=== PATIENT | male | born 1950 | race Caucasian/White ===

== ENCOUNTER 2021-09-26 00:35 | Day surgery (SDCO) | payer OTHER ==
[~2021-09-26] VITALS: Ht 172.7 cm; Wt 78.2 kg
[2021-09-26 00:54] LABS: BASOPHIL 0.7 % (0-2); EOSINOPHIL 1.7 % (0-7); HCT 43.8 % (42.0-52.0); HGB 14.3 g/dl (13.2-18.0); LYMPHOCYTE 34.7 % (15-48); MCH 28.1 pg (25.0-31.0); MCHC 32.6 g/dL (32.0-36.0); MCV 86.2 fL (78.0-100.0); MONOCYTE 9.9 % (0-12); MPV 11.1 fL (6.0-9.5); NEUTROPHIL 52.7 % (41-80); NRBC 0; PLT 262 K/uL (150-400); RBC 5.08 M/uL (4.70-6.00); RDW 13.6 % (11.5-14.0); WBC 7.1 K/uL (4.0-10.5)
[2021-09-26 01:21] LABS: MAGNESIUM 1.9 mg/dL (1.8-2.4); PHOSPHORUS 3.3 mg/dL (2.6-4.7)
[2021-09-26 01:23] LABS: BILIRUBIN - TOTAL 0.4 mg/dL (0.2-1.0); BUN/CREAT RATIO (CALC) 18.5 RATIO; CREATININE 1.08 mg/dL (0.67-1.17); GLOBULIN (CALCULATION) 3.9 g/dL; POTASSIUM 3.6 mmol/L (3.5-5.1); TOTAL PROTEIN 7.9 g/dL (6.4-8.2)
[2021-09-26 02:55] LABS: BILIRUBIN NEGATIVE (NEGATIVE); BLOOD NEGATIVE Ery/uL (NEGATIVE); CLARITY CLEAR (CLEAR); COLOR YELLOW (YELLOW); GLUCOSE (U) NORMAL (NORMAL); LEUKOCYTES NEGATIVE Leu/uL (NEGATIVE); NITRITE NEGATIVE (NEGATIVE); PROTEIN NEGATIVE (NEGATIVE); UROBILINOGEN 0.2 mg/dL (0.2-1.0)
[2021-09-26] MEDS ORDERED: AMLODIPINE BESYL5 MG PO (04:31)
[2021-09-26] MEDS ORDERED: LANTUS SOL100 UNIT/1 SC (04:31)
[2021-09-26] MEDS ORDERED: OMEPRAZOLE 20MG20 MG PO (04:32)
[2021-09-26] MEDS ORDERED: CLOPIDOGREL75 MG PO (04:32)
[2021-09-26] MEDS ORDERED: SERTRALINE HCL25 MG PO (04:32)
[2021-09-26] MEDS ORDERED: METFORMIN HCL500 M1 PO (04:33)
[2021-09-26] MEDS ORDERED: RAMIPRIL10 MG PO (04:33)
[2021-09-26] MEDS ORDERED: EZETIMIBE10 MG PO (04:34)
[2021-09-26] MEDS ORDERED: ATORVASTATIN CA80 MG PO (04:34)
[2021-09-26] MEDS ORDERED: FENOFIBRATE145 MG PO (04:34)
[2021-09-27 06:02] LABS: EOSINOPHIL 1.6 % (0-7); HCT 38.9 % (42.0-52.0); HGB 12.8 g/dl (13.2-18.0); LYMPHOCYTE 41.6 % (15-48); MCH 28.1 pg (25.0-31.0); MCHC 32.9 g/dL (32.0-36.0); MCV 85.5 fL (78.0-100.0); MONOCYTE 10.5 % (0-12); MPV 11.4 fL (6.0-9.5); NEUTROPHIL 45.1 % (41-80); NRBC 0; PLT 204 K/uL (150-400); RBC 4.55 M/uL (4.70-6.00); RDW 13.4 % (11.5-14.0); WBC 5.1 K/uL (4.0-10.5)
[2021-09-27 06:23] LABS: ALBUMIN 3.3 g/dL (3.4-5.0); BILIRUBIN - TOTAL 0.4 mg/dL (0.2-1.0); BUN/CREAT RATIO (CALC) 14.7 RATIO; CREATININE 1.09 mg/dL (0.67-1.17); GLOBULIN (CALCULATION) 3.4 g/dL; PHOSPHORUS 3.7 mg/dL (2.6-4.7); POTASSIUM 3.6 mmol/L (3.5-5.1); TOTAL PROTEIN 6.7 g/dL (6.4-8.2)
--- NOTE | 2021-09-27 13:44 | NUR ---
09/27/21 Mr. Ambrosio was on August 12. He is living with his grandson, Zander Ambrosio ([phone]). Mr. Ambrosio has a rw and wc. However, he was independent with mobility prior to illness. Mr. Ambrosio and his grandson are interested in SNF placement prior to returning to his grandson's home. Referrals have been to: [facility], [facility], [facility], and [facility] per patient / family choice.
--- NOTE | 2021-09-28 12:13 | NUR ---
09/28/21 [facility] has received insurance authorization for admission today. His grandson, Zander Ambrosio, , has agreed to transport. A request was made for the H&P and DS to be signed. - Report was given to MS HAI Michelle, and Dr. Mackey. - Note: The grandson reports patient to have had the Tj & Tj vaccination in June.
[2021-09-28] MEDS ORDERED: ASPIRIN EC81 MG PO (13:25)
[2021-09-28] MEDS ORDERED: TAMSULOSIN HCL0.4 MG PO (13:25)
== END 2021-09-28 18:56 ==
LOC: FER 00:35 → FMS 03:09
PROVIDERS: Emergency Medicine; Family Medicine; ADMIT Internal Medicine
DX: I16.0 Hypertensive urgency (principal); I10 Essential (primary) hypertension; R53.1 Weakness; I69.351 Hemiplegia and hemiparesis following cerebral infarction affecting right dominant side; E11.40 Type 2 diabetes mellitus with diabetic neuropathy, unspecified; I25.10 Atherosclerotic heart disease of native coronary artery without angina pectoris; E78.5 Hyperlipidemia, unspecified; S51.012A Laceration without foreign body of left elbow, initial encounter; S80.212A Abrasion, left knee, initial encounter; R39.198 Other difficulties with micturition; Z66 Do not resuscitate; Z87.891 Personal history of nicotine dependence; Z79.02 Long term (current) use of antithrombotics/antiplatelets; Z79.4 Long term (current) use of insulin; Z79.84 Long term (current) use of oral hypoglycemic drugs; Z79.899 Other long term (current) drug therapy; Z95.1 Presence of aortocoronary bypass graft; Z95.5 Presence of coronary angioplasty implant and graft; Z20.822 Contact with and (suspected) exposure to COVID-19; W19.XXXA Unspecified fall, initial encounter
CPT/HCPCS: 36415; 70450; 70551; 71045; 80053; 81003; 82962; 83036; 83735; 84100; 84443; 84484; 85025; 93005; 97110; 97163; 97166; 97530-GP; 97535; G0378; J1650; J1815; J7030; U0002

== ENCOUNTER 2021-10-13 13:48 | Day surgery (SDCO) | payer OTHER ==
[~2021-10-13] VITALS: Ht 170.2 cm; Wt 77.3 kg
[~2021-10-13 13:48] MED LIST: AMLODIPINE BESYL5 MG PO; ASPIRIN EC81 MG PO; ATORVASTATIN CA80 MG PO; CLOPIDOGREL75 MG PO; EZETIMIBE10 MG PO; FENOFIBRATE145 MG PO; LANTUS SOL100 UNIT/1 SC; METFORMIN HCL500 M1 PO; OMEPRAZOLE 20MG20 MG PO; RAMIPRIL10 MG PO; SERTRALINE HCL25 MG PO; TAMSULOSIN HCL0.4 MG PO
[2021-10-13 14:45] LABS: BASOPHIL 0.3 % (0-2); EOSINOPHIL 0.1 % (0-7); HCT 42.6 % (42.0-52.0); HGB 13.6 g/dl (13.2-18.0); MCH 27.9 pg (25.0-31.0); MCHC 31.9 g/dL (32.0-36.0); MCV 87.5 fL (78.0-100.0); MONOCYTE 7.6 % (0-12); MPV 11.2 fL (6.0-9.5); NEUTROPHIL 74.1 % (41-80); NRBC 0; PLT 280 K/uL (150-400); RBC 4.87 M/uL (4.70-6.00); RDW 13.2 % (11.5-14.0)
[2021-10-13 15:05] LABS: PROTHROMBIN TIME 12.6 SECONDS (11.8-13.4); PTT 27.3 SECONDS (24.4-34.7)
[2021-10-13 15:14] LABS: ALBUMIN 3.7 g/dL (3.4-5.0); BILIRUBIN - TOTAL 0.3 mg/dL (0.2-1.0); BUN/CREAT RATIO (CALC) 18.9 RATIO; CREATININE 0.9 mg/dL (0.67-1.17); GLOBULIN (CALCULATION) 3.7 g/dL; POTASSIUM 3.9 mmol/L (3.5-5.1); TOTAL PROTEIN 7.4 g/dL (6.4-8.2)
[2021-10-13 15:24] LABS: CKMB 0.7 ng/mL (0.0-3.6)
[2021-10-13 21:08] LABS: CORONAVIRUS 2019 SARS-COV-2 NEGATIVE (NEGATIVE); INFLUENZA A NAA NEGATIVE (NEGATIVE)
[2021-10-14] MEDS ORDERED: ESOMEPRAZOLE MA40 MG PO (02:22)
[2021-10-14 06:31] LABS: BASOPHIL 0.6 % (0-2); EOSINOPHIL 1.6 % (0-7); HCT 38.9 % (42.0-52.0); HGB 12.4 g/dl (13.2-18.0); LYMPHOCYTE 23.2 % (15-48); MCH 28.3 pg (25.0-31.0); MCHC 31.9 g/dL (32.0-36.0); MCV 88.8 fL (78.0-100.0); MONOCYTE 8.2 % (0-12); MPV 11.4 fL (6.0-9.5); NEUTROPHIL 66.1 % (41-80); NRBC 0; PLT 263 K/uL (150-400); RBC 4.38 M/uL (4.70-6.00); RDW 13.4 % (11.5-14.0); WBC 6.7 K/uL (4.0-10.5)
[2021-10-14 06:48] LABS: BUN/CREAT RATIO (CALC) 19.4 RATIO; CREATININE 1.03 mg/dL (0.67-1.17); POTASSIUM 4.1 mmol/L (3.5-5.1)
[2021-10-14 18:49] LABS: BILIRUBIN NEGATIVE (NEGATIVE); BLOOD NEGATIVE Ery/uL (NEGATIVE); CLARITY CLEAR (CLEAR); COLOR YELLOW (YELLOW); GLUCOSE (U) NORMAL (NORMAL); LEUKOCYTES NEGATIVE Leu/uL (NEGATIVE); NITRITE NEGATIVE (NEGATIVE); PROTEIN NEGATIVE (NEGATIVE); SPECIFIC GRAVITY 1.015 (1.001-1.030); pH 7.5 (5.0-9.0)
[2021-10-14 18:54] LABS: AMPHETAMINES NEGATIVE (NEGATIVE); BARBITURATES NEGATIVE (NEGATIVE); ECSTASY (MDMA) NEGATIVE (NEGATIVE); MARIJUANA (THC) NEGATIVE (NEGATIVE); METHADONE NEGATIVE (NEGATIVE); OPIATES NEGATIVE (NEGATIVE); OXYCODONE NEGATIVE (NEGATIVE)
[2021-10-14 19:06] LABS: CALCIUM OXALATE CRYSTALS TRACE
[2021-10-15 06:06] LABS: EOSINOPHIL 2.4 % (0-7); HCT 41.5 % (42.0-52.0); HGB 13.3 g/dl (13.2-18.0); LYMPHOCYTE 33.3 % (15-48); MCH 27.8 pg (25.0-31.0); MCV 86.6 fL (78.0-100.0); MONOCYTE 8.7 % (0-12); MPV 11.1 fL (6.0-9.5); NEUTROPHIL 54.4 % (41-80); NRBC 0; PLT 234 K/uL (150-400); RBC 4.79 M/uL (4.70-6.00); RDW 13.3 % (11.5-14.0); WBC 6.2 K/uL (4.0-10.5)
[2021-10-15 06:31] LABS: BUN/CREAT RATIO (CALC) 18.4 RATIO; CREATININE 0.98 mg/dL (0.67-1.17); POTASSIUM 3.9 mmol/L (3.5-5.1)
--- NOTE | 2021-10-15 12:15 | NUR ---
10/15/21 Mr. Ambrosio lives with his daughter, Tracee Powers, . He has a cane, rw, 3in1, s. chair, wc and ramp. A referral was made to [facility] per family choice. There was concerns re: insulin being given correctly. Dr. Maldonado will dc the insulin and control BS with medications and diet. The HHR included nursing for diabetic teaching, OT/PT and social work. - Please notify [facility] at [phone] if patient discharges over the weekend.
--- NOTE | 2021-10-15 12:37 | NUR ---
10/15/21 A was notified of discharge. Report given to IVANIA Sanchez RN.
== END 2021-10-15 17:37 | disposition home or self-care (01) ==
LOC: FER 13:48 → FTCU 19:46
PROVIDERS: Emergency Medicine; Internal Medicine; Nurse Practitioner; Nurse Practitioner Family; ADMIT Internal Medicine
DX: E11.649 Type 2 diabetes mellitus with hypoglycemia without coma (principal); I10 Essential (primary) hypertension; I25.10 Atherosclerotic heart disease of native coronary artery without angina pectoris; E78.5 Hyperlipidemia, unspecified; E11.40 Type 2 diabetes mellitus with diabetic neuropathy, unspecified; F17.210 Nicotine dependence, cigarettes, uncomplicated; Z86.73 Personal history of transient ischemic attack (TIA), and cerebral infarction without residual deficits; Z95.5 Presence of coronary angioplasty implant and graft; Z95.1 Presence of aortocoronary bypass graft; Z79.4 Long term (current) use of insulin; Z79.84 Long term (current) use of oral hypoglycemic drugs; Z79.82 Long term (current) use of aspirin; Z20.822 Contact with and (suspected) exposure to COVID-19; G31.9 Degenerative disease of nervous system, unspecified; F02.80 Dementia in other diseases classified elsewhere, unspecified severity, without behavioral disturbance, psychotic disturbance, mood disturbance, and anxiety
CPT/HCPCS: 36415; 70450; 70551; 71045; 80048; 80053; 80305; 81001; 82553; 82962; 83036; 84484; 85025; 85610; 85730; 93005; 97162; 97166; 97530-GP; 97535; G0378; J1650; U0002

== ENCOUNTER 2022-01-08 09:27 | Emergency (ER) | payer OTHER ==
[~2022-01-08 09:27] MED LIST changes: +ESOMEPRAZOLE MA40 MG PO
== END 2022-01-08 11:54 | disposition home or self-care (01) ==
LOC: FER 09:27
DX: S00.03XA Contusion of scalp, initial encounter (principal); I10 Essential (primary) hypertension; E11.9 Type 2 diabetes mellitus without complications; Z86.73 Personal history of transient ischemic attack (TIA), and cerebral infarction without residual deficits; W19.XXXA Unspecified fall, initial encounter; Y92.129 Unspecified place in nursing home as the place of occurrence of the external cause
CPT/HCPCS: 70450; 72125

== ENCOUNTER 2022-04-08 15:52 | Emergency (ER) | payer OTHER ==
[2022-04-08 17:44] LABS: EOSINOPHIL 1.5 % (0-7); HCT 39.8 % (42.0-52.0); HGB 12.9 g/dl (13.2-18.0); LYMPHOCYTE 30.1 % (15-48); MCH 28.5 pg (25.0-31.0); MCHC 32.4 g/dL (32.0-36.0); MCV 88.1 fL (78.0-100.0); MONOCYTE 7.9 % (0-12); MPV 11.3 fL (6.0-9.5); NEUTROPHIL 59.1 % (41-80); NRBC 0; PLT 213 K/uL (150-400); RBC 4.52 M/uL (4.70-6.00); WBC 4.8 K/uL (4.0-10.5)
[2022-04-08 18:04] LABS: PROTHROMBIN TIME 12.6 SECONDS (11.8-13.4); PTT 28.8 SECONDS (24.4-34.7)
[2022-04-08 18:06] LABS: ALBUMIN 3.6 g/dL (3.4-5.0); BILIRUBIN - TOTAL 0.4 mg/dL (0.2-1.0); BUN/CREAT RATIO (CALC) 16.8 RATIO; CREATININE 1.01 mg/dL (0.67-1.17); GLOBULIN (CALCULATION) 3.3 g/dL; POTASSIUM 3.7 mmol/L (3.5-5.1); TOTAL PROTEIN 6.9 g/dL (6.4-8.2)
== END 2022-04-09 00:40 | disposition other institution (70) ==
LOC: FER 15:52
PROVIDERS: Emergency Medicine
DX: R41.82 Altered mental status, unspecified (principal); R45.851 Suicidal ideations; I69.351 Hemiplegia and hemiparesis following cerebral infarction affecting right dominant side; I10 Essential (primary) hypertension; Z87.891 Personal history of nicotine dependence; Z20.822 Contact with and (suspected) exposure to COVID-19; Z28.310 Unvaccinated for COVID-19
CPT/HCPCS: 36415; 70450; 71045; 80053; 84484; 85025; 85610; 85730; 93005; U0002